=== PATIENT | female | born 1945 | race American Indian/Alaskan Native ===

== ENCOUNTER 2018-06-07 10:21 | Outpatient (CLI) | payer MEDICARE | END 2018-06-07 10:22 | disposition home or self-care (01) | LOC: C.RADIC 10:21 | DX: R05 Cough (principal) ==

== ENCOUNTER 2018-07-21 08:07 | Emergency (ER) | payer MEDICARE ==
[2018-07-21 08:28] VITALS: BMI 51.7
[2018-07-21] MEDS ORDERED: Oxycodone/Acetaminophen 5/325 mg Tab PO STA (09:08)
--- NOTE | 2018-07-21 09:14 | C.PDOC ---
History Of Present Illness 73 year old female patient with history of arthritis and stroke presents to the ER complaining of lower back pain that radiates to the bilateral thighs for x4 days. Patient denies any fall, trauma and changes in sensation of the legs. Patient is currently on metformin. Patients she has regular bowel movements. Time Seen by Provider: 07/21/18 08:22 Chief Complaint (Nursing): Back Pain History Per: Patient History/Exam Limitations: no limitations Onset/Duration Of Symptoms: Days (x4) Current Symptoms Are (Timing): Still Present Pain Scale Rating Of: 7 Previous Symptoms: Chronic Pain Associated Symptoms: denies: Incontinence, New Weakness, New Numbness Exacerbating Factor(s): Turning, Movement Recent travel outside of the [place]: No Past Medical History Reviewed: Historical Data, Nursing Documentation, Vital Signs Vital Signs: Last Vital Signs Temp 98.5 F 07/21/18 08:25 Pulse 73 07/21/18 08:25 Resp 16 07/21/18 08:25 BP 165/79 H 07/21/18 08:25 Pulse Ox 95 07/21/18 08:25 Primary Care Provider: Ilir Rogers - Medical History PMH: Arthritis, HTN, Hypercholesterolemia Family History: States: No Known Family Hx - Social History Hx Alcohol Use: No Hx Substance Use: No - Immunization History Hx Tetanus Toxoid Vaccination: No Hx Influenza Vaccination: Yes Hx Pneumococcal Vaccination: Yes Review Of Systems Except As Marked, All Systems Reviewed And Found Negative. Constitutional: Negative for: Other (fall, trauma ) Musculoskeletal: Positive for: Back Pain, Other (bilateral thigh pain, radiated from the lower back ) Neurological: Negative for: Weakness, Numbness Physical Exam - Physical Exam Appears: Non-toxic, No Acute Distress Skin: Warm, Dry, No Rash, No Ecchymosis Head: Atraumatic, Normacephalic Eye(s): bilateral: Normal Inspection, PERRL, EOMI Oral Mucosa: Moist Throat: No Erythema, No Exudate Neck: Normal ROM, Supple Chest: Symmetrical, No Tenderness Cardiovascular: Rhythm Regular, No Friction Rub, No Murmur Respiratory: Normal Breath Sounds, No Rales, No Rhonchi, No Stridor, No Wheezing Gastrointestinal/Abdominal: Bowel Sounds (active), Soft, No Tenderness Back: Normal Inspection, No CVA Tenderness, No Straight Leg Raising, Other (paralumbar tenderness) Extremity: Normal ROM, No Tenderness, No Calf Tenderness, Capillary Refill <2 Sec, Swelling (1-2+ edema) Pulses: Left Dorsalis Pedis: Normal, Right Dorsalis Pedis: Normal Neurological/Psych: Oriented x3, Normal Speech, Normal Cognition, Normal Motor, Normal Sensation Gait: Steady ED Course And Treatment O2 Sat by Pulse Oximetry: 95 (RA) Pulse Ox Interpretation: Normal - Other Rad Lumbar spine XR X-Ray: Read By Radiologist Interpretation: Accession No. : [id number]. Patient Name / ID : NEELAM BLEDSOE / [id number]. Exam Date : 07/21/2018 09:23:32 ( Approved ). Study Comment : Sex / Age : F / 73Y. Creator : Mandeep Faith MD. Dictator : Mandeep Faith MD. Shear Scrapman : Hemmer Lockstitch : Mandeep Faith MD. Approver2 : Report Date : 07/21/2018 15:01:11. My Comment : . Date of service: 07/21/2018. PROCEDURE: Radiographs of the Lumbar Spine. HISTORY: low back pain. COMPARISON: No prior. TECHNIQUE: Three views obtained. FINDINGS: BONES: Vertebral body heights are maintained. There are multilevel degenerative changes including large anterior bridging osteophyte formation, small posterior osteophyte formation, endplate degenerative changes, and multilevel disc space narrowing as well as facet arthropathy. There is grade 1-2 retrolisthesis of L2 on L3 measuring 0.7 cm and grade 1 retrolisthesis of L3 on L4 measuring 0.5 cm. DISC SPACES: See above. OTHER FINDINGS: None. IMPRESSION: Multilevel degenerative changes as above. Medical Decision Making Medical Decision Making: Plans: -- LS spine XR -- toradol -- percocet -- prednisone On re-exam, the patient reports improvement of symptoms. Lungs are CTA, heart is RRR, abdomen is soft, non-tender and tolerating PO well. Pt reports that she walks with a walker but feels well enough to be sent home. Follow up with the medical doctor within 1-2 days. Return if worsened. Disposition - Disposition Referrals: Ilir Rogers MD [Staff Provider] - Roly Molina MD [Non-Staff] - Disposition: HOME/ ROUTINE Disposition Time: 10:30 Condition: IMPROVED Additional Instructions: Follow up with the medical doctor within 1-2 days. Return if worsened. Prescriptions: Acetaminophen [Tylenol] 325 mg PO Q6 PRN #30 tab PRN Reason: Pain, Mild (1-3) Naproxen 375 mg PO BID #20 tablet oxyCODONE/Acetaminophen [Percocet 5/325 mg Tab] 1 tab PO QID PRN #10 tab PRN Reason: Pain Instructions: Osteoarthritis Forms: [facility] ([place]) - Clinical Impression Clinical Impression: Low back pain, Osteoarthritis - PA / CLINIC LEAD / Resident Statement / has reviewed & agrees with the documentation as recorded. - Scribe Statement The provider has reviewed the documentation as recorded by the Eleazar Nunez Do All medical record entries made by the Scribe were at my direction and personally dictated by me. I have reviewed the chart and agree that the record accurately reflects my personal performance of the history, physical exam, medical decision making, and the department course for this patient. I have also personally directed, reviewed, and agree with the discharge instructions and disposition.
[2018-07-21] MEDS ORDERED: Oxycodone/Acetaminophen 5/325 mg Tab ONE (09:28)
[2018-07-21 11:41] VITALS: BP 139/70; PULSE 77; RESP 18; TEMP 98
--- NOTE | 2018-07-21 15:05 | RAD ---
Date of service: 07/21/2018 PROCEDURE: Radiographs of the Lumbar Spine. HISTORY: low back pain COMPARISON: No prior. TECHNIQUE: Three views obtained. FINDINGS: BONES: Vertebral body heights are maintained. There are multilevel degenerative changes including large anterior bridging osteophyte formation, small posterior osteophyte formation, endplate degenerative changes, and multilevel disc space narrowing as well as facet arthropathy. There is grade 1-2 retrolisthesis of L2 on L3 measuring 0.7 cm and grade 1 retrolisthesis of L3 on L4 measuring 0.5 cm. DISC SPACES: See above OTHER FINDINGS: None. IMPRESSION: Multilevel degenerative changes as above.
[2018-07-21 18:48] VITALS: O2SAT 95
== END 2018-07-21 12:18 | disposition home or self-care (01) ==
LOC: C.ER 08:07
DX: M19.90 Unspecified osteoarthritis, unspecified site (principal); M54.5 Low back pain
CPT/HCPCS: 72100; 96372; 99284; J1885